=== PATIENT | male | born 1945 | race Caucasian/White ===

== ENCOUNTER → 2017-01-09 | Outpatient (CLI) | payer MEDICARE, OTHER | END | disposition home or self-care (01) | LOC: GMAM 15:42 | PROVIDERS: ATTEND Family Medicine | DX: E29.1 Testicular hypofunction (principal) ==

== ENCOUNTER → 2017-01-29 | Outpatient (CLI) | payer MEDICARE, OTHER ==
--- NOTE | 2017-01-30 09:02 | RAD ---
EXAM DESCRIPTION: KUB CLINICAL HISTORY: 71 years Male, KIDNEY STONES COMPARISON: July 10, 2016 FINDINGS: The bowel gas pattern is nonobstructive. Small calcifications project over the left kidney, stable. There are additional small calcifications in the right upper quadrant which may represent gallstones, also stable. No ureteral calculus is identified. There is no suspicious bone lesion. IMPRESSION: Left-sided nephrolithiasis and probable cholelithiasis, but no acute abnormality or significant change from July,. Electronically signed by: Steve Jackson MD 01/30/2017 9:01 AM WATCHSTANDER
== END | disposition home or self-care (01) ==
LOC: RAD 14:30
PROVIDERS: ATTEND Urology
DX: N20.0 Calculus of kidney (principal)

== ENCOUNTER → 2017-04-09 | Outpatient (CLI) | payer MEDICARE, OTHER | END | disposition home or self-care (01) | LOC: GMAM 10:13 | PROVIDERS: ATTEND Family Medicine | DX: E29.1 Testicular hypofunction (principal) ==

== ENCOUNTER → 2017-10-27 | Outpatient (CLI) | payer MEDICARE, OTHER | LOC: GMAM 22:59 | PROVIDERS: ATTEND Family Medicine | DX: Z12.5 Encounter for screening for malignant neoplasm of prostate (principal) ==

== ENCOUNTER → 2018-02-05 | Outpatient (CLI) | payer MEDICARE, OTHER | LOC: GMAM 11:54 | PROVIDERS: ATTEND Family Medicine | DX: E29.1 Testicular hypofunction (principal) ==

== ENCOUNTER → 2018-10-27 | Outpatient (CLI) | payer MEDICARE, OTHER | LOC: GMAM 14:29 | PROVIDERS: ATTEND Family Medicine | DX: R53.83 Other fatigue (principal); E29.1 Testicular hypofunction; Z12.5 Encounter for screening for malignant neoplasm of prostate | CPT/HCPCS: 84403; 84439; 84443; G0103 ==

== ENCOUNTER → 2019-02-15 | Outpatient (CLI) | payer MEDICARE, OTHER | LOC: GMAM 15:22 | PROVIDERS: ATTEND Family Medicine | DX: E29.1 Testicular hypofunction (principal) ==

== ENCOUNTER → 2019-07-22 | Outpatient (CLI) | payer MEDICARE, OTHER ==
--- NOTE | 2019-07-23 07:39 | MRI ---
EXAM DESCRIPTION: Brain w/wo Contrast: Magnetic Resonance Imaging. CLINICAL HISTORY: 73 years Male DIZZINESS AND GIDDINESS COMPARISON: None. TECHNIQUE: Multiplanar, high-field MRI, multiple conventional sequences, without and with gadolinium IV contrast. No adverse reactions. Multiple axial diffusion sequences. FINDINGS: Bilateral confluent hyperintense FLAIR and T2-weighted signal in the periventricular white matter predominantly around the frontal horns and occipital horns of the lateral ventricles. Focal lesion in the srinivasan radiata of the posterior left frontal lobe. Tiny foci of abnormal signal in the subcortical white matter frontal and parietal lobes bilaterally. None of these lesions demonstrate hemorrhage, mass effect, diffusion restriction, or abnormal enhancement. Normal signal in the bilateral basal ganglia. No hemorrhage, no cerebral edema, no mass-effect. No diffusion restriction. Normal contrast enhancement. Normal signal in the brainstem and cerebellar hemispheres. No hemorrhage, no cerebral edema, no mass-effect. Normal contrast enhancement. Concordance of the diffusion and non-diffusion sequences with no evidence of acute or subacute infarction. Cortical sulci, ventricles, and other CSF spaces, and the subdural spaces are normally configured for the patient's age.. No effacement or displacement. No midline shift. No extra-axial hemorrhage. Normal contrast enhancement. Normal flow signal void in the major vessels of the douglas Baldwin, and the venous sinuses. IACs are symmetric bilaterally. Normal flow signal in the left inferior mastoid air cells. No mass effect in the bilateral Cerebellopontine angles. Normal contrast enhancement. Pituitary gland occupies most of the sella. Normal contrast enhancement. Base of the cerebellar tonsils is at the level of the foramen magnum. Minimal mucoperiosteal thickening in the ethmoid air cells and left maxillary antra with polyp or cyst on the right.. The bony calvarium is intact. Increased fluid in the distal optic nerve sheaths abutting the optic globes. No abnormal enhancement. IMPRESSION: 1. Nonspecific white matter lesions predominantly in the periventricular white matter abutting the bilateral frontal horns and occipital horns of the lateral ventricles. Also focal lesion in the posterior left frontal lobe srinivasan radiata. These lesions are not associated with hemorrhage, mass effect, diffusion restriction, or abnormal contrast enhancement. Most likely related to aging and/or cerebral microvascular disease. 2. Normal noncontrast MRI diffusion study with no evidence of acute or subacute significant ischemia or infarction. 3. Minimal edema in the optic nerve sheaths around the distal optic nerves at the optic globes. No abnormal enhancement. Correlate for visual abnormalities. 4. Minimal chronic paranasal sinusitis. Electronically signed by: Lele Grande MD 07/23/2019 7:37 AM CDT
== END ==
LOC: MRI 09:04
PROVIDERS: ATTEND Family Medicine
DX: R90.82 White matter disease, unspecified (principal); J32.9 Chronic sinusitis, unspecified; H47.10 Unspecified papilledema

== ENCOUNTER 2019-09-23 14:10 | Emergency (ER) | payer MEDICARE, OTHER ==
[2019-09-23 14:41] VITALS: O2SAT 95
[2019-09-23] MEDS ORDERED: SODIUM CHLORIDE 0.9% (FLUSH) 10 ML SYG IV PRN (14:54)
[2019-09-23] MEDS ORDERED: SODIUM CHLORIDE 0.9% 1000ML 1,000 ML IVS ONE (14:55)
--- NOTE | 2019-09-23 14:56 | ED.PDOC ---
History of Present Illness - General Chief Complaint: Abdominal Pain Stated Complaint: abdominal pain Time Seen by Provider: 09/23/19 14:54 Information Source: patient - History of Present Illness Initial Comments: 73 yo male with PMH of chronic back pain and diverticulosis who presents with cc of LLQ pain. Reports he has been having Left low back pains for about 1 week now, no acute preceding injury reported, described as constant, moderate, dull/aching pain. 2 days ago pain began radiating to LLQ intermittently, describes as sharp severe pains which last for several seconds typically and go away, seem to be worse when moving into certain positions and eases up when he changes to a different position, seems be migrating from LLQ abdomen to the left lower pelvis and groin now, took some hydrocodone this AM with moderate relief. Denies any dysuria, hematuria but having some weak stream last night. Denies fevers, chills, diarrhea, constipation, n/v. Reports a flare of diverticulitis x1 about 20 years ago. Last c-scope was 1 month ago and only noted diverticulosis and 1 polyp. Review of Systems - Review of Systems Review of Systems: 09/23/19 15:47 as per HPI All other Systems: Reviewed and Negative Past Medical History (General) - Patient Medical History Hx Seizures: No Hx Stroke: Yes - TIA Hx Asthma: No Hx of COPD: No Hx Cardiac Disorders: Yes - stents Hx Congestive Heart Failure: No Hx Pacemaker: No Hx Hypertension: Yes Hx Thyroid Disease: No Hx Diabetes: Yes Hx MRSA: No Surgical History: tonsillectomy, other - Social History Hx Tobacco Use: No Hx Alcohol Use: No Hx Substance Use: No Hx Physical Abuse: No Hx Emotional Abuse: No Family Medical History - Family History Father Family History: Unknown Physical Exam - Physical Exam General Appearance: Alert, No apparent distress Eyes, Ears, Nose, Throat Exam: PERRL/EOMI, normal ENT inspection, pharynx normal Neck: non-tender, full range of motion, supple, normal inspection Respiratory: chest non-tender, lungs clear, normal breath sounds, no respiratory distress Cardiovascular/Chest: normal peripheral pulses, regular rate, rhythm, no edema, no gallop Peripheral Pulses: 2+ Gastrointestinal/Abdominal: normal bowel sounds, soft, no organomegaly, tenderness - moderate LLQ ttp Back Exam: normal inspection, no CVA tenderness, no vertebral tenderness Extremity: normal range of motion, normal capillary refill Progress - Progress Progress: 09/23/19 15:48 LLQ pain -consider diverticulitis vs kidney stone vs abdominal wall muscle strain vs UTI vs back strain vs other -obtain labs, UA, plan for possible CT A/P -Toradol 30 mg IV, 1 L NS bolus 09/23/19 16:53 -WBC 11,000 with slight left shift and no bands. UA pretty unremarkable. CT A/P reveals evidence of diverticulitis in the descending colon. Also cholelithiasis without evidence of cholecystitis. -discussed findings and dx of acute diverticulitis - will treat with oral Abx as outpt - Cipro 500 mg BID and Flagyl 500 mg TID for 10 days. F/u with PCP 2-3 days, return warnings discussed at length. Eusebio Gomez MD Billing #[id number] Departure - Departure Clinical Impression: Diverticulitis Time of Disposition: 16:55 Disposition: Discharge to Home or Self Care Condition: Fair Departure Forms: ED Discharge - Pt. Copy, Patient Portal Self Enrollment Instructions: Diverticulitis (DC) Referrals: Matt Juan MD [Primary Care Provider] - 1-2 Weeks Prescriptions: Ciprofloxacin [Cipro] 500 mg PO BID 10 Days tab metroNIDAZOLE [Flagyl] 500 mg PO Q8H 10 Days tab Home Medications: Ambulatory Orders Aspirin [Aspirin EC] 81 mg PO DAILY 08/08/14 Atorvastatin Calcium [Lipitor] 10 mg PO DAILY 08/08/14 Clopidogrel Bisulfate [Plavix] 75 mg PO DAILY 08/08/14 Hydrochlorothiazide 50 mg PO DAILY 08/08/14 Lisinopril 10 mg PO DAILY 08/08/14 Metformin HCl [Metformin Hydrochloride] 500 mg PO BID 08/08/14 Metoprolol Tartrate 25 mg PO BID 08/08/14 Tadalafil [Cialis] 5 mg PO DAILY 08/08/14 Testosterone Cypionate 100 mg IM WKLY 08/08/14 Rivaroxaban [Xarelto] 10 mg PO QDPC #8 tab 08/12/14 Ciprofloxacin [Cipro] 500 mg PO BID 10 Days tab 09/23/19 metroNIDAZOLE [Flagyl] 500 mg PO Q8H 10 Days tab 09/23/19 Additional Instructions: Follow up with your PCP in 2-3 days for repeat evaluation or sooner as needed. Return if worsening as discussed.
[2019-09-23] MEDS ORDERED: KETOROLAC TROMETHAMINE INJ 30 MG/ML VIAL IV ONE (15:43)
--- NOTE | 2019-09-23 16:41 | CT ---
EXAM DESCRIPTION: Abdomen/Pelvis w/wo Contrast CLINICAL HISTORY: 73 years Male, LLQ pain COMPARISON: None available. TECHNIQUE: Contiguous 3 mm axial images were obtained from lung bases to the level of proximal femora before and after the administration of intravenous and oral contrast. Sagittal and coronal reconstructions were reviewed. This exam was performed according to our departmental dose-optimization program, which includes automated exposure control, adjustment of the mA and/or kV according to patient size and/or use of iterative reconstruction technique. FINDINGS: Imaged lower thorax appears normal. The liver appears grossly unremarkable. Multiple gallstones are identified. The pancreas, spleen, bilateral adrenal glands appear normal. Nonobstructive calculi of both kidneys the largest measuring 8 mm in the inferior pole of left kidney. Small hiatal hernia. The stomach is mildly distended with no gross abnormality. The small bowel loops appear normal. Multiple diverticuli are noted throughout the visualized colon. Inflammatory stranding is identified around the distal descending colon, consistent with acute diverticulitis. No perforation or abscess formation. The appendix appears normal. The urinary bladder is mildly distended with no gross abnormality. The prostate gland is mildly enlarged in size measuring 4.6 x 4.6 x 5.1 cm. The seminal vesicles appear normal. The abdominal aorta demonstrates no significant atherosclerosis. The inferior vena cava is normal in size and caliber. No abnormally enlarged lymph nodes are identified. Small fat-containing bilateral inguinal hernias. Moderate degenerative changes are identified throughout the visualized spine. Bilateral pars defects of L5 with grade 1 anterolisthesis of L5 over S1. IMPRESSION: 1. Acute diverticulitis of the distal descending colon. No perforation or abscess formation. 2. Cholelithiasis. 3. Nonspecific nephrolithiasis of both kidneys. Electronically signed by: Michael Bacon MD 09/23/2019 4:39 PM CDT
[2019-09-23] MEDS ORDERED: CIPROFLOXACIN 500 MG TAB PO ONE (16:53)
[2019-09-23] MEDS ORDERED: metroNIDAZOLE 500 MG TAB PO ONE (16:53)
[2019-09-23 17:20] VITALS: BP 142/83; TEMP 97.4
== END 2019-09-23 17:20 | disposition home or self-care (01) ==
LOC: ER 14:10
DX: K57.32 Diverticulitis of large intestine without perforation or abscess without bleeding (principal); E11.9 Type 2 diabetes mellitus without complications; I10 Essential (primary) hypertension; Z86.73 Personal history of transient ischemic attack (TIA), and cerebral infarction without residual deficits; Z98.61 Coronary angioplasty status
CPT/HCPCS: 36415; 74178; 80048; 80076; 81001; 83690; 85025; J1885; J7030

== ENCOUNTER 2019-12-10 12:17 | Emergency (ER) | payer MEDICARE, OTHER ==
[2019-12-10 12:54] VITALS: TEMP 97.8
--- NOTE | 2019-12-10 13:33 | RAD ---
EXAM DESCRIPTION: Abdomen Series CLINICAL HISTORY: 74 years Male, ruq and flank pain COMPARISON: None. Findings: No acute cardiopulmonary abnormality. No free air beneath the diaphragm. Moderate stool volume. Nonobstructive bowel gas pattern. No air-fluid level. Cholelithiasis. Small calcific densities overlying the left renal shadow. No acute osseous abnormality. IMPRESSION: Nonobstructive bowel gas pattern. Cholelithiasis. Electronically signed by: Juan David Guidry MD 12/10/2019 1:32 PM SEGMENT BLOCK LAYER
[2019-12-10] MEDS ORDERED: HYDROcodone 7.5MG/APAP 325MG 1 EA TAB PO ONE (15:49)
--- NOTE | 2019-12-10 16:01 | US ---
EXAM DESCRIPTION: Abdomen,Limited CLINICAL HISTORY: ruq pain, elev lft and bili COMPARISON: None. TECHNIQUE: Real-time sonographic images of the right upper quadrant of the abdomen are obtained. FINDINGS: Pancreas is not well visualized secondary to overlying bowel gas and patient body habitus.. The right lobe of the liver measures 15.9cm. The liver is diffusely heterogeneous and increased in echogenicity. No focal hepatic mass is seen. The gallbladder is borderline distended and contains multiple mobile foci of increased echogenicity with posterior acoustic shadowing in the lower portion of the gallbladder measuring maximum 1.6 cm.. No gallbladder wall thickening or pericholecystic fluid is seen. The common bile duct measures 6 mm in greatest diameter. The right kidney measures 11.8 cm small 3 mm focus of increased echogenicity in the midpole region of the left kidney could represent nonshadowing nephrolithiasis versus prominent vessel.. Visualized IVC and abdominal aorta are within normal limits. IMPRESSION: Cholelithiasis without ultrasound evidence of acute cholecystitis. Gallbladder is borderline distended. No biliary tract obstruction. Heterogeneous increased echogenicity of the liver could represent diffuse fatty infiltration although other etiologies can have a similar appearance. Electronically signed by: Paulo Alvarez MD 12/10/2019 3:59 PM DISPATCHER RADIO
[2019-12-10] MEDS ORDERED: SODIUM CHLORIDE 0.9% 1000ML 1,000 ML IVS ONE (16:08)
[2019-12-10] MEDS ORDERED: PIPERACILLIN/TAZOBACTAM 3.375 GM in SODIUM CHLORIDE 0.9% 100ML 100 ML IVPB ONE (16:08)
[2019-12-10] MEDS ORDERED: PIPERACILLIN/TAZOBACTAM 3.375 GM VIAL IVPB ONE (16:18)
[2019-12-10] MEDS ORDERED: SODIUM CHLORIDE 0.9% 100ML 100 ML IVPB ONE (16:18)
[2019-12-10 18:14] VITALS: BP 120/86; O2SAT 92
--- NOTE | 2019-12-10 18:28 | ED.PDOC ---
History of Present Illness - General Chief Complaint: Back Pain or Injury Stated Complaint: back pain radiating to abdomen Time Seen by Provider: 12/10/19 12:38 Source: patient Exam Limitations: no limitations - History of Present Illness Initial Comments: the patient is a 74-year-old male presenting to emergency room secondary to right upper quadrant pain that started yesterday. The pain is intermittent but occasionally severe. He did throw up one time. No fevers. He does have a known gallstone. No syncope or near-syncope. No radiating pain. He does take Plavix. Timing/Duration: unsure Severity: moderate Improving Factors: nothing Worsening Factors: nothing Associated Symptoms: loss of appetite, malaise, nausea/vomiting Allergies/Adverse Reactions: Allergies NO KNOWN ALLERGY Allergy (Unverified 08/08/14 08:44) Home Medications: Ambulatory Orders Aspirin [Aspirin EC] 81 mg PO DAILY 08/08/14 Atorvastatin Calcium [Lipitor] 10 mg PO DAILY 08/08/14 Clopidogrel Bisulfate [Plavix] 75 mg PO DAILY 08/08/14 Hydrochlorothiazide 50 mg PO DAILY 08/08/14 Lisinopril 10 mg PO DAILY 08/08/14 Metformin HCl [Metformin Hydrochloride] 500 mg PO BID 08/08/14 Metoprolol Tartrate 25 mg PO BID 08/08/14 Tadalafil [Cialis] 5 mg PO DAILY 08/08/14 Testosterone Cypionate 100 mg IM WKLY 08/08/14 Rivaroxaban [Xarelto] 10 mg PO QDPC #8 tab 08/12/14 Ciprofloxacin [Cipro] 500 mg PO BID 10 Days tab 09/23/19 metroNIDAZOLE [Flagyl] 500 mg PO Q8H 10 Days tab 09/23/19 Amoxicillin & Pot Clavulanate [Augmentin Tab] 875 mg PO BID #20 tab 12/10/19 Promethazine HCl 25 mg PO Q6H PRN #10 tab 12/10/19 Tramadol HCl 50 mg PO Q8HR PRN #20 tab 12/10/19 Review of Systems - Review of Systems Constitutional: States: no symptoms reported EENTM: States: no symptoms reported Respiratory: States: no symptoms reported Cardiology: States: no symptoms reported Gastrointestinal/Abdominal: States: abdominal pain, nausea, vomiting Genitourinary: States: no symptoms reported Musculoskeletal: States: no symptoms reported Skin: States: no symptoms reported Neurological: States: no symptoms reported Endocrine: States: no symptoms reported All other Systems: No Change from Baseline Past Medical History (General) - Patient Medical History Hx Seizures: No Hx Stroke: Yes - TIA Hx Asthma: No Hx of COPD: No Hx Cardiac Disorders: Yes - stents Hx Congestive Heart Failure: No Hx Pacemaker: No Hx Hypertension: Yes Hx Thyroid Disease: No Hx Diabetes: Yes Hx MRSA: No Surgical History: other - Vaccination History Hx Influenza Vaccination: Yes - 2018 Hx Pneumococcal Vaccination: Yes - 2018 - Social History Hx Tobacco Use: No Hx Alcohol Use: No Hx Substance Use: No Hx Physical Abuse: No Hx Emotional Abuse: No Family Medical History - Family History Father Family History: Unknown Physical Exam - Physical Exam General Appearance: Alert, No apparent distress Eye Exam: bilateral normal Ears, Nose, Throat: hearing grossly normal, normal ENT inspection Neck: full range of motion, supple Respiratory: lungs clear, normal breath sounds, no respiratory distress, no accessory muscle use Cardiovascular/Chest: normal peripheral pulses, regular rate, rhythm, no edema Peripheral Pulses: radial,right: 2+, radial,left: 2+ Gastrointestinal/Abdominal: soft, other - mild right upper quadrant pain discomfort palpation. No true rebound or peritoneal signs. Rectal Exam: deferred Back Exam: no CVA tenderness, no vertebral tenderness - No pae mass. Extremity: normal range of motion, non-tender, normal inspection, no pedal edema, normal capillary refill Neurologic: block paver II-XII nml as tested, alert, normal mood/affect, oriented x 3 Skin Exam: normal color Comments: Vital Signs - 24 hr 12/10/19 12/10/19 12/10/19 12:35 14:18 15:00 Temperature 97.8 F Pulse Rate [ 72 86 70 left brachial] Respiratory 16 16 18 Rate Blood Pressure 154/82 140/84 141/73 [left brachial] O2 Sat by Pulse 92 L 93 L 93 L Oximetry 12/10/19 12/10/19 12/10/19 16:00 17:00 18:00 Temperature Pulse Rate [ 68 73 67 left brachial] Respiratory 20 16 18 Rate Blood Pressure 149/75 136/70 120/86 [left brachial] O2 Sat by Pulse 92 L 91 L 92 L Oximetry Progress - Progress Progress: 12/10/19 18:29 the patient is a 74-year-old male presenting to emergency room with what appears to be early mild cholecystitis. There is a mild elevation of liver function tests. The patient was seen here by Dr. Mendez, general surgery. the patient was given a dose of Zosyn here as well as a liter of IV fluids. He is going to follow-up with the general surgeon next week. In the meantime he is going to hold his Plavix. He can continue the baby aspirin. He is going to be written for Augmentin to take in the interim. He does need to maintain a low- fat diet and keep himself well hydrated. If he is obviously worsening over the weekend then he needs to proceed to a larger hospital that will have a surgical team over the weekend. ER warnings are given for any obvious worsening. sheryl juan [phone] 12/10/19 18:36 - Results/Orders Results/Orders: Laboratory Tests 12/10/19 12/10/19 12/10/19 13:04 13:04 13:04 WBC 9.6 RBC 5.25 Hgb 16.6 Hct 50.0 MCV 95.2 H MCH 31.7 H MCHC 33.2 RDW 14.7 H Plt Count 172 MPV 7.5 Absolute Neuts (auto) 7.80 H Absolute Lymphs (auto) 1.00 Absolute Monos (auto) 0.80 Absolute Eos (auto) 0.10 Absolute Basos (auto) 0.10 Neutrophils % 81.0 H Lymphocytes % 9.9 L Monocytes % 7.8 Eosinophils % 0.7 L Basophils % 0.6 Sodium 135 Potassium 4.0 Chloride 98 L Carbon Dioxide 26 Anion Gap 15.0 BUN 16 Creatinine 1.11 BUN/Creatinine Ratio 14.4 Random Glucose 189 H Serum Osmolality 276.3 Lactic Acid 1.7 Calcium 9.3 Total Bilirubin 2.2 H* AST 76 H ALT 91 H Alkaline Phosphatase 196 H Creatine Kinase 196 H CK-MB (CK-2) 3.5 CK-MB (CK-2) % Not Reportable Troponin I < 0.02 Serum Total Protein 7.5 Albumin 3.8 Globulin 3.7 H Albumin/Globulin Ratio 1.0 L Amylase 65 Lipase 109 H Urine Color Urine Appearance Urine pH Ur Specific [place] Urine Protein Urine Glucose (UA) Urine Ketones Urine Blood Urine Nitrite Urine Bilirubin Urine Urobilinogen Ur Leukocyte Esterase Urine RBC Urine WBC Ur Epithelial Cells Urine Bacteria 12/10/19 13:22 WBC RBC Hgb Hct MCV MCH MCHC RDW Plt Count MPV Absolute Neuts (auto) Absolute Lymphs (auto) Absolute Monos (auto) Absolute Eos (auto) Absolute Basos (auto) Neutrophils % Lymphocytes % Monocytes % Eosinophils % Basophils % Sodium Potassium Chloride Carbon Dioxide Anion Gap BUN Creatinine BUN/Creatinine Ratio Random Glucose Serum Osmolality Lactic Acid Calcium Total Bilirubin AST ALT Alkaline Phosphatase Creatine Kinase CK-MB (CK-2) CK-MB (CK-2) % Troponin I Serum Total Protein Albumin Globulin Albumin/Globulin Ratio Amylase Lipase Urine Color Yellow Urine Appearance Clear Urine pH 6.5 Ur Specific [place] 1.025 Urine Protein Negative Urine Glucose (UA) Negative Urine Ketones Negative Urine Blood Trace-lysed H Urine Nitrite Negative Urine Bilirubin Negative Urine Urobilinogen 0.2 Ur Leukocyte Esterase Negative Urine RBC 3-5 H Urine WBC 0-1 Ur Epithelial Cells 0 Urine Bacteria 0 right upper quadrant ultrasound shows no definitive acute pathology. See report for details., Bile duct is 6.6 mm. No gallbladder wall thickening or pericholecystic fluid. He does have chronic gallstones. Departure - Departure Clinical Impression: Acute cholecystitis Disposition: Discharge to Home or Self Care Condition: Fair Departure Forms: ED Discharge - Pt. Copy, Patient Portal Self Enrollment Instructions: Gallstones (DC) Diet: low fat, low cholesterol Activity: increase activity as tolerated Referrals: Matt Juan MD [Primary Care Provider] - 1-2 Weeks Prescriptions: Tramadol HCl 50 mg PO Q8HR PRN #20 tab PRN Reason: Moderate Pain Amoxicillin & Pot Clavulanate [Augmentin Tab] 875 mg PO BID #20 tab Promethazine HCl 25 mg PO Q6H PRN #10 tab PRN Reason: Vomiting Home Medications: Ambulatory Orders Aspirin [Aspirin EC] 81 mg PO DAILY 08/08/14 Atorvastatin Calcium [Lipitor] 10 mg PO DAILY 08/08/14 Clopidogrel Bisulfate [Plavix] 75 mg PO DAILY 08/08/14 Hydrochlorothiazide 50 mg PO DAILY 08/08/14 Lisinopril 10 mg PO DAILY 08/08/14 Metformin HCl [Metformin Hydrochloride] 500 mg PO BID 08/08/14 Metoprolol Tartrate 25 mg PO BID 08/08/14 Tadalafil [Cialis] 5 mg PO DAILY 08/08/14 Testosterone Cypionate 100 mg IM WKLY 08/08/14 Rivaroxaban [Xarelto] 10 mg PO QDPC #8 tab 08/12/14 Ciprofloxacin [Cipro] 500 mg PO BID 10 Days tab 09/23/19 metroNIDAZOLE [Flagyl] 500 mg PO Q8H 10 Days tab 09/23/19 Amoxicillin & Pot Clavulanate [Augmentin Tab] 875 mg PO BID #20 tab 12/10/19 Promethazine HCl 25 mg PO Q6H PRN #10 tab 12/10/19 Tramadol HCl 50 mg PO Q8HR PRN #20 tab 12/10/19 Additional Instructions: the patient is a 74-year-old male presenting to emergency room with what appears to be early mild cholecystitis. There is a mild elevation of liver function tests. The patient was seen here by Dr. Mendez, general surgery. the patient was given a dose of Zosyn here as well as a liter of IV fluids. He is going to follow-up with the general surgeon next week. In the meantime he is going to hold his Plavix. He can continue the baby aspirin. He is going to be written for Augmentin to take in the interim. He does need to maintain a low- fat diet and keep himself well hydrated. If he is obviously worsening over the weekend then he needs to proceed to a larger hospital that will have a surgical team over the weekend. ER warnings are given for any obvious worsening.
== END 2019-12-10 18:43 | disposition home or self-care (01) ==
LOC: ER 12:17
DX: K80.00 Calculus of gallbladder with acute cholecystitis without obstruction (principal); I10 Essential (primary) hypertension; E11.9 Type 2 diabetes mellitus without complications; I51.9 Heart disease, unspecified; Z95.5 Presence of coronary angioplasty implant and graft; Z86.73 Personal history of transient ischemic attack (TIA), and cerebral infarction without residual deficits; Z79.82 Long term (current) use of aspirin; Z79.899 Other long term (current) drug therapy; Z79.01 Long term (current) use of anticoagulants; Z79.84 Long term (current) use of oral hypoglycemic drugs
CPT/HCPCS: 36415; 74019; 76775; 80053; 81001; 82150; 82550; 82553; 83605; 83690; 84484; 85025; J2543; J7030; J7050

== ENCOUNTER → 2020-09-25 | Outpatient (CLI) | payer MEDICARE, OTHER | LOC: GMAM 16:52 | PROVIDERS: ATTEND Family Medicine | DX: E29.1 Testicular hypofunction (principal); I10 Essential (primary) hypertension; E11.9 Type 2 diabetes mellitus without complications ==